=== PATIENT | female | born 1990 | race Caucasian/White ===

== ENCOUNTER 2017-06-27 15:06 | Emergency (ER) | payer MEDICAID, OTHER, SELFPAY ==
[~2017-06-27] VITALS: Ht 170.2 cm; Wt 118.1 kg
[2017-06-27 15:06] VITALS: BP 152/73
[~2017-06-27 15:06] MED LIST: ACET50TA PO; PRENTAB66 PO
[2017-06-27] MEDS ORDERED: MULTCAP11 PO (15:19)
[2017-06-27] MEDS ORDERED: IBUPROFEN 800 MG TAB PO ONE (15:30)
[2017-06-27] MEDS ORDERED: IBUP80TA PO (16:07)
--- NOTE | 2017-06-28 07:22 | REP ---
Right shoulder three views : There is no fracture or dislocation. Mineralization and joint spaces are normal. There are no calcifications or foreign bodies. Impression: Negative right shoulder . Signed by Glenroy Harry MD 06/28/2017 07:13 A
== END 2017-06-27 16:24 | disposition home or self-care (01) ==
LOC: M ED 15:06
DX: S46.011A Strain of muscle(s) and tendon(s) of the rotator cuff of right shoulder, initial encounter (principal); X58.XXXA Exposure to other specified factors, initial encounter; Y92.9 Unspecified place or not applicable; Y93.9 Activity, unspecified; Y99.9 Unspecified external cause status; Z72.0 Tobacco use

== ENCOUNTER 2017-07-16 08:55 | Emergency (ER) | payer SELFPAY ==
[~2017-07-16] VITALS: Ht 170.2 cm; Wt 122.2 kg
[~2017-07-16 08:55] MED LIST changes: +IBUP80TA PO; +MULTCAP11 PO
[2017-07-16 08:56] VITALS: BP 147/81
[2017-07-16] MEDS ORDERED: IBUP80TA PO (09:12)
[2017-07-16] MEDS ORDERED: NORCO, ANEXSIA 5/325MG TABLET (HYDROcodone/ACETAMINOPHEN) PO ONE (09:15)
== END 2017-07-16 09:24 | disposition home or self-care (01) ==
LOC: M ED 08:55
DX: S46.911A Strain of unspecified muscle, fascia and tendon at shoulder and upper arm level, right arm, initial encounter (principal); X58.XXXA Exposure to other specified factors, initial encounter; Y92.019 Unspecified place in single-family (private) house as the place of occurrence of the external cause; Y93.89 Activity, other specified; Y99.8 Other external cause status; F17.210 Nicotine dependence, cigarettes, uncomplicated

== ENCOUNTER → 2017-09-02 | Outpatient (REF) | payer OTHER, MEDICAID ==
[2017-09-02 13:02] LABS: ALBUMIN/GLOBULIN RATIO 1.38 (1.00-1.93); ALKALINE PHOSPHATASE 54 U/L (45-117); ALT/SGPT 27 U/L (12-78); ANION GAP 8 MEQ/L (8-16); AST/SGOT 11 U/L (15-37); BILIRUBIN,TOTAL 0.4 MG/DL (0.2-1.0); BLOOD UREA NITROGEN 14 MG/DL (7-18); CALCIUM LEVEL 9.3 MG/DL (8.5-10.1); CARBON DIOXIDE LEVEL 25 MEQ/L (21-32); CHLORIDE LEVEL 105 MEQ/L (98-107); CHOLESTEROL LEVEL 152 MG/DL (<200); CREATININE FOR GFR 0.83 MG/DL (0.55-1.02); FREE T4 1.24 NG/DL (0.76-1.46); GLOMERULAR FILTRATION RATE > 60.0 (>60); GLUCOSE, FASTING 83 MG/DL (70-105); POTASSIUM SERUM 4.8 MEQ/L (3.5-5.1); SODIUM LEVEL 138 MEQ/L (136-145); TOTAL PROTEIN 6.9 GM/DL (6.4-8.2); TRIGLYCERIDES LEVEL 45 MG/DL (<150)
== END ==
LOC: M SFHCPLAZ 09:43
PROVIDERS: ATTEND Family Medicine
DX: E66.01 Morbid (severe) obesity due to excess calories (principal)

== ENCOUNTER → 2017-11-26 | Outpatient (CLI) | payer SELFPAY | LOC: M SLEEP HO 08:14 | DX: G47.30 Sleep apnea, unspecified (principal) ==

== ENCOUNTER 2018-02-10 21:40 | Emergency (ER) | payer OTHER, SELFPAY ==
[2018-02-10] MEDS: ONDANSETRON 4 MG ORAL DISINTEGRATING TAB (S0181) PO (23:59)
== END 2018-02-11 00:13 | disposition home or self-care (01) ==
LOC: M ED 21:40
DX: A08.4 Viral intestinal infection, unspecified (principal); F17.210 Nicotine dependence, cigarettes, uncomplicated; Z20.828 Contact with and (suspected) exposure to other viral communicable diseases
CPT/HCPCS: 99283

== ENCOUNTER 2018-08-24 16:19 | Emergency (ER) | payer OTHER, SELFPAY | END 2018-08-24 17:28 | disposition home or self-care (01) | LOC: M ED 16:19 | DX: K04.7 Periapical abscess without sinus (principal); H92.02 Otalgia, left ear; F17.290 Nicotine dependence, other tobacco product, uncomplicated; Z79.899 Other long term (current) drug therapy | CPT/HCPCS: 99282 ==

== ENCOUNTER → 2019-10-18 | Outpatient (REF) | payer OTHER ==
[~2019-10-18] MED LIST changes: -ACET50TA PO; +HYDR-3715 PO; +IBUP-1022 PO; +MAPA500T17 PO; +PENI500T PO; +ZOFR4TAB14 PO
== END ==
LOC: M SFHCPLAZ 15:32
PROVIDERS: ATTEND Physician Assistant
DX: Z68.41 Body mass index [BMI] 40.0-44.9, adult (principal); Z00.00 Encounter for general adult medical examination without abnormal findings

== ENCOUNTER → 2019-10-19 | Outpatient (CLI) | payer OTHER ==
[2019-10-19 14:12] LABS: HEMOGLOBIN A1c 5.5 %
[2019-10-19 14:22] LABS: ALT/SGPT 36 U/L (12-78); BILIRUBIN,TOTAL 0.4 MG/DL (0.2-1.0); BLOOD UREA NITROGEN 13 MG/DL (7-18); CALCIUM LEVEL 8.9 MG/DL (8.5-10.1); CARBON DIOXIDE LEVEL 28 MEQ/L (21-32); CHLORIDE LEVEL 108 MEQ/L (98-107); CHOLESTEROL LEVEL 197 MG/DL (<200); CHOLESTEROL RISK RATIO 3.396 (<5); CREATININE FOR GFR 0.92 MG/DL (0.55-1.30); FREE T4 0.99 NG/DL (0.76-1.46); GLOMERULAR FILTRATION RATE > 60.0 (>60); GLUCOSE, FASTING 88 MG/DL (70-100); HDL CHOLESTEROL 58 MG/DL (>40); LDL CHOLESTEROL 123 MG/DL (<100); NON-HDL-C 139 MG/DL; POTASSIUM SERUM 4.5 MEQ/L (3.5-5.1); SODIUM LEVEL 140 MEQ/L (136-145); TOTAL PROTEIN 7.4 GM/DL (6.4-8.2); TRIGLYCERIDES LEVEL 82 MG/DL (<150)
== END ==
LOC: M PLALAB 11:11
PROVIDERS: ATTEND Physician Assistant
DX: Z68.41 Body mass index [BMI] 40.0-44.9, adult (principal)

== ENCOUNTER → 2020-08-08 | Outpatient (REF) | LOC: M EMPSKH 13:00 | PROVIDERS: ATTEND Nurse Practitioner Adult Health | DX: Z00.00 Encounter for general adult medical examination without abnormal findings (principal) ==

== ENCOUNTER → 2020-10-08 | Outpatient (CLI) | payer SELFPAY | LOC: M LABSMTC 13:55 | PROVIDERS: ATTEND Pediatrics | DX: Z20.828 Contact with and (suspected) exposure to other viral communicable diseases (principal) ==

== ENCOUNTER → 2020-11-02 | Outpatient (CLI) | payer OTHER ==
--- NOTE | 2020-11-12 08:53 | REP ---
INDICATION: ANATOMY COMPARISON: None. TECHNIQUE: Transabdominal obstetrical ultrasound with color Doppler evaluation. FINDINGS: NOTE: Examination was made available for interpretation on 11/12/2020. Examination demonstrates a single live intrauterine in breech presentation. motion is identified by technologist. Placenta is noted anterior and grade 1 without evidence for placenta previa or abruption. Amniotic fluid volume is normal. Cervix measures 3.6 cm in length and appears closed. Gestational age by current measurements 20 weeks 6 days with SHARON 03/16/2021. FHR equals 155 beats per minute. BPD: 4.9 cm 20 weeks 6 days HC: 18.0 cm 20 weeks 3 days AC: 16.3 cm 21 weeks 2 days FL: 3.1 cm 19 weeks 5 days HL: 3.5 cm 21 weeks 6 days HC/AC: 1.11 Estimated weight 364 grams (21stpercentile). Anatomical assessment demonstrates normal structures including cranium, cerebellum/posterior fossa, four-chamber heart/ventricular outflow tracts, diaphragm, stomach, bladder, spine, and extremities. Limited evaluation of the cerebral ventricles/choroid plexus, nose/lips, kidneys, and umbilical cord noted due to positioning and body habitus. IMPRESSION: 1. Single live intrauterine in breech presentation demonstrating appropriate estimated weight. 2. Anatomical limitations as noted above may warrant re-evaluation and follow-up. <Electronically signed by Raulito Mcclure > 11/12/20 [id number]
== END ==
LOC: M WHC 09:28
PROVIDERS: ATTEND Advanced Practice Midwife
DX: Z34.82 Encounter for supervision of other normal pregnancy, second trimester (principal)

== ENCOUNTER → 2020-11-28 | Outpatient (CLI) | payer OTHER ==
--- NOTE | 2020-11-28 08:03 | REP ---
INDICATION: F/U ANATOMY COMPARISON: 11/02/2020 TECHNIQUE: Transabdominal obstetrical ultrasound with color Doppler evaluation. FINDINGS: Examination demonstrates a single live intrauterine in transverse presentation. motion is identified by technologist. Placenta is noted anterior and grade 0 without evidence for placenta previa or abruption. Amniotic fluid volume is normal. Cervix measures 3.7 cm in length and appears closed.. Gestational age by LMP 23 weeks 3 days with SHARON 03/24/2021. Gestational age by current measurements 23 weeks 4 days with SHARON 03/23/2021. FHR equals 146 beats per minute. Estimated weight 594 grams (44percentile). Anatomical assessment demonstrates normal structures including cerebral ventricles, choroid plexus, facial features (nose/lips), and kidneys.. Normal three-vessel cord noted. IMPRESSION: Single live intrauterine in transverse lie demonstrating appropriate estimated weight and growth. In conjunction with prior examination anatomical assessment is complete and normal. <Electronically signed by Raulito Mcclure > 11/28/20 [id number]
== END ==
LOC: M WHC 06:37
PROVIDERS: ATTEND Advanced Practice Midwife
DX: Z34.82 Encounter for supervision of other normal pregnancy, second trimester (principal); Z3A.23 23 weeks gestation of pregnancy

== ENCOUNTER → 2021-01-02 | Outpatient (CLI) | payer OTHER ==
[2021-01-02 13:53] LABS: HEMATOCRIT 37.9 % (36.0-47.0); HEMOGLOBIN 12.6 g/dl (12.0-15.5); MEAN CORPUSCULAR HEMOGLOBIN 29.7 pg (27.0-33.0); MEAN CORPUSCULAR HGB CONC 33.2 g/dl (32.0-36.5); MEAN CORPUSCULAR VOLUME 89.4 fl (80.0-96.0); PLATELET COUNT, AUTOMATED 238 10^3/uL (150-450); RED BLOOD COUNT 4.24 10^6/uL (4.00-5.40); WHITE BLOOD COUNT 12.3 10^3/uL (4.0-10.0)
== END ==
LOC: M LAB 12:13
PROVIDERS: ATTEND Advanced Practice Midwife
DX: Z34.82 Encounter for supervision of other normal pregnancy, second trimester (principal); Z3A.00 Weeks of gestation of pregnancy not specified

== ENCOUNTER → 2021-02-19 | Outpatient (REF) | payer OTHER | LOC: M LAB REF 12:13 | PROVIDERS: ATTEND Obstetrics & Gynecology | DX: Z36.89 Encounter for other specified antenatal screening (principal); Z34.83 Encounter for supervision of other normal pregnancy, third trimester ==

== ENCOUNTER 2021-04-02 11:06 | Inpatient (IN) | payer OTHER ==
[~2021-04-02] VITALS: Ht 172.7 cm; Wt 152.7 kg
[2021-04-02] VITALS (14 sets, daily range): BP systolic 95–154; BP diastolic 45–94
[2021-04-02] MEDS ORDERED: LACTATED RINGER'S 1000 ML IV STA (11:15)
[2021-04-02] MEDS: LR 1,000 ML IV SCH (11:15)
[2021-04-02] MEDS ORDERED: TUMS750C22 PO (11:31)
[2021-04-02] MEDS ORDERED: PRENTAB9 PO (11:31)
[2021-04-02 11:49] LABS: HEMOGLOBIN 13.5 g/dl (12.0-15.5); MEAN CORPUSCULAR HGB CONC 32.9 g/dl (32.0-36.5); PLATELET COUNT, AUTOMATED 233 10^3/uL (150-450); RED BLOOD COUNT 4.66 10^6/uL (4.00-5.40); WHITE BLOOD COUNT 8.3 10^3/uL (4.0-10.0)
[2021-04-02] MEDS ORDERED: SLF 3 ML SYR IV PRN (12:20)
[2021-04-02] MEDS: miSOPROStol 25MCG 1/4 TABLET PO SCH ×3 (12:23→20:43)
[2021-04-02] MEDS: SLF 3 ML SYR IV SCH ×2 (12:44→22:00)
--- NOTE | 2021-04-02 18:50 | HPE ---
HISTORY AND PHYSICAL DATE OF ADMISSION: 04/02/2021 HISTORY OF PRESENT ILLNESS: Catherine is a 30-year-old female, 2, para 1-0-0-1, with an estimated date of confinement (EDC) of 04/03/2021, estimated gestational age (EGA) 41-2/7 weeks gestation, is being admitted for an induction. Upon admission, no bleeding. No leakage of fluid. Good movement. Her record is reviewed, which was essentially unremarkable. LABS: Blood type is A negative. Rubella immune. Hepatitis negative. Human immunodeficiency virus (HIV) negative. Gonorrhea and chlamydia negative. One-hour sugar testing was within normal limits. Her group B Streptococcus (GBS) is negative. She did receive RhoGAM at 28 weeks gestation. PAST MEDICAL HISTORY: Significant for eczema. PAST SURGICAL HISTORY: Denies. SOCIAL HISTORY: She denies any alcohol, drug or cigarette smoking. She is legally . FAMILY HISTORY: Significant for diabetes and cancer. REVIEW OF SYSTEMS: Unremarkable. MEDICATIONS: vitamins. ALLERGIES: No known drug allergies. PHYSICAL EXAMINATION: Obese female in no acute distress. ABDOMEN: Soft, nontender, nondistended. EXTREMITIES: No clubbing, cyanosis or edema. VAGINAL EXAM: Closed, thick and posterior. Fetus with a floating vertex. The vertex was confirmed by bedside ultrasound. TRACING: Category 1 tracing. ASSESSMENT: Intrauterine at 41-2/7 weeks gestation with a floating vertex being admitted for induction. PLAN: Admit patient to labor and delivery. Induction process discussed in great detail. The risk and benefit of the induction process discussed, as well as the potential risk for section. Pain management also discussed. Patient opted for an epidural. We will continue to monitor. Anticipate delivery. Cytotec induction will be initiated.
[2021-04-02 19:39] LABS: ALT/SGPT 15 U/L (12-78); BILIRUBIN,TOTAL 0.3 MG/DL (0.2-1.0); CREATININE FOR GFR 0.78 MG/DL (0.55-1.30); GLOMERULAR FILTRATION RATE > 60.0 (>60); LDH LACTATE DEHYDROGENASE 165 U/L (84-246); URIC ACID 7.7 MG/DL (2.6-6.0)
[2021-04-03] VITALS (47 sets, daily range): BP systolic 112–176; BP diastolic 60–109
[2021-04-03] MEDS: miSOPROStol 25MCG 1/4 TABLET PO SCH (00:39)
[2021-04-03] MEDS: SLF 3 ML SYR IV SCH (05:07)
[2021-04-03] MEDS ORDERED: OXYTOCIN 30 UNITS IN 0.9% NaCl 500ML IV BAG (J2590) As Ordered ONE (09:45)
[2021-04-03] MEDS: LR 1,000 ML IV SCH (09:57)
[2021-04-03] MEDS ORDERED: OXYTOCIN DRIP 30 UNITS in IV 1 EA IV SCH ×2 (10:00→18:30)
[2021-04-03] MEDS ORDERED: LR 1,000 ML IV SCH (10:00)
[2021-04-03] MEDS ORDERED: FENTANYL 2MCG/ML ROPIVACAINE 0.2% IN 0.9% NACL 100ML IVBAG As Ordered ONE (14:37)
[2021-04-03] MEDS ORDERED: diphenhydrAMINE 50MG/ML VIAL (J1200) IV PRN (14:45)
[2021-04-03] MEDS ORDERED: NALOXONE INJ 0.4MG/1ML VIAL (J2310 PER 1MG) IV PRN (14:45)
[2021-04-03] MEDS ORDERED: ePHEDrine SULFATE 25 MG/5 ML(5MG/ML) SYRINGE IV PRN (14:45)
[2021-04-03] MEDS ORDERED: REFRIGERATOR IV KEYS XX PRN (14:45)
[2021-04-03] MEDS ORDERED: EPIDURAL COMMENT XX SCH (14:45)
[2021-04-03] MEDS ORDERED: ONDANSETRON 4MG/2ML VIAL IV PRN (14:45)
[2021-04-03] MEDS ORDERED: LACTATED RINGER'S 1000 ML IV PRN (14:45)
[2021-04-03] MEDS ORDERED: EPIDURAL/PCA KEYS XX PRN (14:45)
[2021-04-03] MEDS ORDERED: FENTANYL/ROPIVACAINE/NACL BAG 100 ML EPIDURAL SCH (14:45)
[2021-04-03 17:43] LABS: CORD GAS ABE A -10.7; CORD GAS ABE V -6.1; CORD GAS HCO3 A 23.5 MEQ/L; CORD GAS HCO3 V 22.2 MEQ/L; CORD GAS O2 SAT A < 15.0 %; CORD GAS O2 SAT V 52.6 %; CORD GAS PCO2 A 97.4 mmHg; CORD GAS PCO2 V 53.7 mmHg; CORD GAS PH V 7.234 UNITS; CORD GAS PO2 A 12.4 mmHg; CORD GAS PO2 V 28.5 mmHg; CORD GAS SBC V 18.4 MEQ/L; CORD GAS TCO2 A 26.5 MEQ/L; CORD GAS TCO2 V 23.8 MEQ/L
[2021-04-03] MEDS ORDERED: LABETALOL 100MG/20ML VIAL IV STA (18:04)
[2021-04-03] MEDS ORDERED: IBUPROFEN 600MG TAB PO PRN (18:30)
[2021-04-03] MEDS ORDERED: METHYLERGONOVINE MALEATE 0.2 MG TAB PO PRN (18:30)
[2021-04-03] MEDS ORDERED: ACETAMINOPHEN TAB 650MG DOSE (2X325MG) PO PRN (18:30)
[2021-04-03] MEDS ORDERED: ACETAMINOPHEN 500 MG TAB PO PRN (18:30)
[2021-04-03] MEDS ORDERED: MEASLES,MUMPS,RUBELLA VACCINE INJ (MMR-II) (90707) SC SCH (18:30)
[2021-04-03] MEDS ORDERED: RHOGAM 300 MCG (1500 IU) INJ (J2790) IM SCH (18:30)
[2021-04-03] MEDS ORDERED: DOCUSATE SODIUM 100MG CAPSULE PO PRN (18:30)
[2021-04-03] MEDS ORDERED: DIBUCAINE 1% OINTMENT 30GM TOP PRN (18:30)
[2021-04-03] MEDS: IBUPROFEN 800 MG TAB PO PRN (19:46)
[2021-04-03 20:17] LABS: ALT/SGPT 12 U/L (12-78); BILIRUBIN,TOTAL 0.3 MG/DL (0.2-1.0); CREATININE FOR GFR 0.67 MG/DL (0.55-1.30); GLOMERULAR FILTRATION RATE > 60.0 (>60); LDH LACTATE DEHYDROGENASE 180 U/L (84-246); URIC ACID 7.4 MG/DL (2.6-6.0)
[2021-04-04 06:12] VITALS: BP 134/68
[2021-04-04] MEDS: PRENATAL VITAMINS CHEWABLE TABLET PO SCH (07:52)
[2021-04-04 18:00] VITALS: BP 137/73
[2021-04-05] MEDS: IBUPROFEN 800 MG TAB PO PRN (05:33)
[2021-04-05 05:38] VITALS: BP 121/58
[2021-04-05] MEDS: PRENATAL VITAMINS CHEWABLE TABLET PO SCH (09:31)
== END 2021-04-05 11:15 | disposition home or self-care (01) | DRG 560 ==
LOC: M LDI 11:06 → M OBS 04-03 21:38
PROVIDERS: ADMIT Obstetrics & Gynecology; ATTEND Obstetrics & Gynecology
PROC: 3E0P7GC Introduction of Other Therapeutic Substance into Female Reproductive, Via Natural or Artificial Opening (ICD-10-PCS; 2021-04-02)
PROC: 10907ZC Drainage of Amniotic Fluid, Therapeutic from Products of Conception, Via Natural or Artificial Opening (ICD-10-PCS; 2021-04-02)
PROC: 10E0XZZ Delivery of Products of Conception, External Approach (ICD-10-PCS; principal; 2021-04-03)
DX: O48.0 Post-term pregnancy (principal); E66.9 Obesity, unspecified; Z3A.41 41 weeks gestation of pregnancy; O99.214 Obesity complicating childbirth; Z37.0 Single live birth; O76 Abnormality in fetal heart rate and rhythm complicating labor and delivery; O64.8XX0 Obstructed labor due to other malposition and malpresentation, not applicable or unspecified

== ENCOUNTER → 2022-02-12 | Outpatient (REF) | payer OTHER, MEDICAID ==
[~2022-02-12] MED LIST changes: +PRENTAB9 PO; +TUMS750C22 PO
[2022-02-12 16:34] LABS: HEMATOCRIT 40.9 % (36.0-47.0); HEMOGLOBIN 13.6 g/dl (12.0-15.5); MEAN CORPUSCULAR HEMOGLOBIN 29.4 pg (27.0-33.0); MEAN CORPUSCULAR HGB CONC 33.3 g/dl (32.0-36.5); MEAN CORPUSCULAR VOLUME 88.5 fl (80.0-96.0); PLATELET COUNT, AUTOMATED 191 10^3/uL (150-450); RED BLOOD COUNT 4.62 10^6/uL (4.00-5.40); WHITE BLOOD COUNT 13.7 10^3/uL (4.0-10.0)
[2022-02-12 19:09] LABS: HEPATITIS B SURFACE ANTIGEN NEGATIVE (NEGATIVE); HEPATITIS C VIRUS ABY INDEX 0.2 INDEX (<0.8); HIV 1&2 SCREEN CENTAUR NEGATIVE (NEGATIVE)
[2022-02-12 19:10] LABS: HCG, SERUM QUANTITATIVE 12244 MIU/ML
== END ==
LOC: M LAB REF 16:16
PROVIDERS: ATTEND Obstetrics & Gynecology
DX: Z32.01 Encounter for pregnancy test, result positive (principal)

== ENCOUNTER → 2022-05-01 | Outpatient (CLI) | payer OTHER, MEDICAID ==
[2022-05-01 10:51] LABS: HEMATOCRIT 37.8 % (36.0-47.0); HEMOGLOBIN 12.5 g/dl (12.0-15.5); MEAN CORPUSCULAR HEMOGLOBIN 29.8 pg (27.0-33.0); MEAN CORPUSCULAR HGB CONC 33.1 g/dl (32.0-36.5); PLATELET COUNT, AUTOMATED 238 10^3/uL (150-450); WHITE BLOOD COUNT 12.7 10^3/uL (4.0-10.0)
== END ==
LOC: M LAB 08:31
PROVIDERS: ATTEND Obstetrics & Gynecology
DX: Z34.82 Encounter for supervision of other normal pregnancy, second trimester (principal)

== ENCOUNTER → 2022-05-06 | Outpatient (CLI) | payer OTHER, MEDICAID | LOC: M LAB 08:47 | PROVIDERS: ATTEND Obstetrics & Gynecology | DX: Z34.82 Encounter for supervision of other normal pregnancy, second trimester (principal) ==

== ENCOUNTER → 2022-06-19 | Outpatient (REF) | payer OTHER, MEDICAID | LOC: M LAB REF 11:38 | PROVIDERS: ATTEND Obstetrics & Gynecology | DX: Z34.83 Encounter for supervision of other normal pregnancy, third trimester (principal) ==

== ENCOUNTER → 2022-07-03 | Outpatient (REF) | payer OTHER, MEDICAID | LOC: M LAB REF 12:15 | PROVIDERS: ATTEND Obstetrics & Gynecology | DX: Z34.83 Encounter for supervision of other normal pregnancy, third trimester (principal) ==

== ENCOUNTER 2022-07-13 16:59 | Outpatient (CLI) | payer OTHER, MEDICAID ==
[~2022-07-13] VITALS: Ht 170.2 cm; Wt 131.0 kg
[2022-07-13] MEDS ORDERED: HOME MED LIST COMPLETE! XX SCH (17:20)
[2022-07-13 17:23] VITALS: BP 143/61
[2022-07-13 18:39] LABS: CALCIUM OXALATE CRYSTALS,URINE SMALL AMOUNT /hpf; RBC, URINE NONE SEEN /hpf (0-3); SQUAMOUS EPITHELIAL CELL URINE MOD AMOUNT /hpf (SMALL AMT)
[2022-07-13 18:40] LABS: AMORPHOUS SEDIMENT, URINE SMALL AMOUNT (NEGATIVE); BACTERIA, URINE SMALL AMOUNT; HYALINE CAST, URINE NONE SEEN /lpf (0-1); MUCUS, URINE LARGE AMOUNT (NEGATIVE)
== END 2022-07-13 18:55 | disposition home or self-care (01) ==
LOC: M LDO 16:59
PROVIDERS: ATTEND Obstetrics & Gynecology
DX: O26.893 Other specified pregnancy related conditions, third trimester (principal); R10.2 Pelvic and perineal pain; Z3A.37 37 weeks gestation of pregnancy; N85.8 Other specified noninflammatory disorders of uterus; O34.593 Maternal care for other abnormalities of gravid uterus, third trimester

== ENCOUNTER 2022-07-31 16:56 | Inpatient (IN) | payer OTHER ==
[2022-07-31] VITALS (7 sets, daily range): BP systolic 114–155; BP diastolic 57–95
[~2022-07-31] VITALS: Ht 170.2 cm; Wt 130.0 kg
[2022-07-31] MEDS ORDERED: PENICILLIN G POTASSIUM IV 5 MU in D5W MINI-BAG PLUS 100 ML IV STA (18:01)
[2022-07-31 18:54] LABS: HEMATOCRIT 37.8 % (36.0-47.0); MEAN CORPUSCULAR HEMOGLOBIN 30.4 pg (27.0-33.0); MEAN CORPUSCULAR HGB CONC 34.4 g/dl (32.0-36.5); MEAN CORPUSCULAR VOLUME 88.5 fl (80.0-96.0); PLATELET COUNT, AUTOMATED 219 10^3/uL (150-450); RED BLOOD COUNT 4.27 10^6/uL (4.00-5.40); WHITE BLOOD COUNT 13.6 10^3/uL (4.0-10.0)
[2022-07-31] MEDS ORDERED: HOME MED LIST COMPLETE! XX SCH (19:05)
[2022-07-31 19:26] LABS: RSV AMPLIFICATION NEGATIVE (NEGATIVE)
[2022-07-31] MEDS ORDERED: LR 1,000 ML IV SCH (19:45)
[2022-07-31] MEDS ORDERED: OXYTOCIN DRIP 30 UNITS in IV 1 EA IV SCH (19:45)
[2022-07-31] MEDS: PENICILLIN G POTASSIUM IV 2.5 MU in IV 1 EA IV SCH (23:04)
[2022-07-31] MEDS ORDERED: FENTANYL 2MCG/ML ROPIVACAINE 0.2% IN 0.9% NACL 100ML IVBAG As Ordered ONE (23:52)
[2022-08-01] VITALS (24 sets, daily range): BP systolic 95–132; BP diastolic 52–83
[2022-08-01] MEDS ORDERED: CALCIUM CARBONATE 500 MG CHEW U/D PO ONE (00:10)
[2022-08-01] MEDS ORDERED: EPIDURAL/PCA KEYS XX PRN (00:30)
[2022-08-01] MEDS ORDERED: FENTANYL/ROPIVACAINE/NACL BAG 100 ML EPIDURAL SCH (00:30)
[2022-08-01] MEDS ORDERED: LR 500 ML IV PRN (00:30)
[2022-08-01] MEDS ORDERED: NALOXONE INJ 0.4MG/1ML VIAL (J2310 PER 1MG) IV PRN (00:30)
[2022-08-01] MEDS ORDERED: ePHEDrine SULFATE 25 MG/5 ML(5MG/ML) SYRINGE IVP PRN (00:30)
[2022-08-01] MEDS ORDERED: diphenhydrAMINE 50MG/ML VIAL (J1200) IV PRN (00:30)
[2022-08-01] MEDS ORDERED: ONDANSETRON 4MG 2ML VIAL IV PRN (00:30)
[2022-08-01] MEDS: PENICILLIN G POTASSIUM IV 2.5 MU in IV 1 EA IV SCH (03:30)
[2022-08-01] MEDS ORDERED: IBUPROFEN 600MG TAB PO PRN (04:55)
[2022-08-01] MEDS ORDERED: ACETAMINOPHEN TAB 650MG DOSE (2X325MG) PO PRN (04:55)
[2022-08-01] MEDS ORDERED: DOCUSATE SODIUM 100MG CAPSULE PO PRN (04:55)
[2022-08-01] MEDS ORDERED: METHYLERGONOVINE MALEATE 0.2 MG TAB PO PRN (04:55)
[2022-08-01] MEDS ORDERED: OXYTOCIN DRIP 30 UNITS in IV 1 EA IV ONE (04:55)
[2022-08-01] MEDS ORDERED: ACETAMINOPHEN 500 MG TAB PO PRN (04:55)
[2022-08-01] MEDS ORDERED: IBUPROFEN 800 MG TAB PO PRN (04:55)
[2022-08-01] MEDS ORDERED: DIBUCAINE 1% OINTMENT 30GM TOP PRN (04:55)
[2022-08-01] MEDS ORDERED: RHOGAM 300 MCG (1500 IU) INJ (J2790) IM SCH (04:55)
[2022-08-01] MEDS: PRENATAL VITAMINS CHEWABLE TABLET PO SCH (07:45)
[2022-08-02 06:10] VITALS: BP 124/60
[2022-08-02] MEDS: PRENATAL VITAMINS CHEWABLE TABLET PO SCH (08:18)
[2022-08-02] MEDS ORDERED: MEASLES,MUMPS,RUBELLA VACCINE INJ (MMR-II) (90707) SC.IMMUN ONE (12:00)
[2022-08-03] MEDS ORDERED: MEASLES,MUMPS,RUBELLA VACCINE INJ (MMR-II) (90707) SC.IMMUN ONE (09:00)
== END 2022-08-02 16:40 | disposition home or self-care (01) | DRG 560 ==
LOC: M LDO 16:56 → M LDI 17:44 → M OBS 08-01 06:20
PROVIDERS: ADMIT Specialist; ATTEND Specialist
PROC: 10E0XZZ Delivery of Products of Conception, External Approach (ICD-10-PCS; principal; 2022-08-01)
PROC: 0HQ9XZZ Repair Perineum Skin, External Approach (ICD-10-PCS; 2022-08-01)
DX: O48.0 Post-term pregnancy (principal); O99.824 Streptococcus B carrier state complicating childbirth; Z3A.40 40 weeks gestation of pregnancy; O70.0 First degree perineal laceration during delivery; Z37.0 Single live birth

== ENCOUNTER 2023-03-13 11:25 | Emergency (ER) | payer OTHER ==
[~2023-03-13] VITALS: Ht 170.2 cm; Wt 119.3 kg
[2023-03-13 11:25] VITALS: BP 131/74
== END 2023-03-13 14:14 | disposition home or self-care (01) ==
LOC: M ED 11:25
DX: S20.212A Contusion of left front wall of thorax, initial encounter (principal); V43.52XA Car driver injured in collision with other type car in traffic accident, initial encounter; Y92.410 Unspecified street and highway as the place of occurrence of the external cause; G47.33 Obstructive sleep apnea (adult) (pediatric); J30.1 Allergic rhinitis due to pollen

== ENCOUNTER 2024-03-11 12:19 | Day surgery (SDC) | payer OTHER ==
[~2024-03-11] VITALS: Ht 170.2 cm; Wt 122.0 kg
[2024-03-11 13:32] LABS: BASO # 0.1 10^3/uL (0.0-0.2); BASO % 0.5 % (0.0-1.0); EOS # 0.4 10^3/uL (0.0-0.5); EOS % 2.1 % (0.0-3.0); HEMATOCRIT 47.5 % (36.0-47.0); HEMOGLOBIN 16.3 g/dl (12.0-15.5); LYMPH # 1.8 10^3/uL (1.5-5.0); LYMPH % 8.9 % (24.0-44.0); MEAN CORPUSCULAR HEMOGLOBIN 30.6 pg (27.0-33.0); MEAN CORPUSCULAR HGB CONC 34.3 g/dl (32.0-36.5); MEAN CORPUSCULAR VOLUME 89.1 fl (80.0-96.0); MONO % 4.7 % (2.0-8.0); NEUTROPHILS # 17.1 10^3/uL (1.5-8.5); NEUTROPHILS % 83.4 % (36.0-66.0); PLATELET COUNT, AUTOMATED 230 10^3/uL (150-450); RED BLOOD COUNT 5.33 10^6/uL (4.00-5.40); WHITE BLOOD COUNT 20.5 10^3/uL (4.0-10.0)
[2024-03-11 14:00] LABS: LIPASE 25 U/L (12-53)
[2024-03-11 14:02] LABS: ALBUMIN 4.1 G/DL (3.2-5.2); ALKALINE PHOSPHATASE 60 U/L (46-116); ALT/SGPT 19 U/L (7.0-40); AST/SGOT 13 U/L (<34); BILIRUBIN,DIRECT 0.3 MG/DL (<0.4); BILIRUBIN,TOTAL 0.7 MG/DL (0.3-1.2); BLOOD UREA NITROGEN 11 MG/DL (9-23); CALCIUM LEVEL 9.6 MG/DL (8.5-10.1); CARBON DIOXIDE LEVEL 23 MMOL/L (20-31); CHLORIDE LEVEL 106 MMOL/L (98-107); CREATININE FOR GFR 0.81 MG/DL (0.55-1.30); GLOMERULAR FILTRATION RATE > 60.0 (>60); GLUCOSE, FASTING 90 MG/DL (60-100); POTASSIUM SERUM 4.2 MMOL/L (3.5-5.1); SODIUM LEVEL 137 MMOL/L (136-145)
[2024-03-11 14:09] LABS: HCG, SERUM QUALITATIVE NEGATIVE (NEGATIVE)
[2024-03-11] MEDS ORDERED: ISOVUE-370 76% 100ML VIAL As Ordered ONE (14:14)
[2024-03-11] MEDS: PIPERACILLIN/TAZOBACTAM SOD 3.375 GM in D5W MINI-BAG PLUS 50 ML IV ONE (16:07)
[2024-03-11] MEDS ORDERED: ACETAMINOPHEN 1000MG 100ML IV BAG As Ordered ONE (17:14)
[2024-03-11] MEDS ORDERED: SUGAMMADEX SODIUM 500 MG/5 ML VIAL (BRIDION) As Ordered ONE (17:14)
[2024-03-11] MEDS ORDERED: LIDOCAINE 2% 100MG/5ML SDV (FOR ANES.) As Ordered ONE (17:14)
[2024-03-11] MEDS ORDERED: fentaNYL 250 MCG/5 ML INJECTION As Ordered ONE (17:14)
[2024-03-11] MEDS ORDERED: ONDANSETRON 4MG 2ML VIAL As Ordered ONE (17:14)
[2024-03-11] MEDS ORDERED: propofoL 200 MG/20 ML VIAL As Ordered ONE (17:14)
[2024-03-11] MEDS ORDERED: KETOROLAC 60MG 2ML VIAL As Ordered ONE (17:14)
[2024-03-11] MEDS ORDERED: MIDAZOLAM INJ 2MG/2ML VIAL As Ordered ONE (17:14)
[2024-03-11] MEDS ORDERED: ROCURONIUM BROMIDE 50MG/5ML VIAL As Ordered ONE (17:14)
[2024-03-11] MEDS: LIDOCAINE 1% SDV 30ML VIAL As Ordered ONE (17:39)
[2024-03-11] MEDS ORDERED: oxyCODONE 5MG TAB PO PRN (17:45)
[2024-03-11] MEDS ORDERED: ONDANSETRON 4MG 2ML VIAL IV PRN ×2 (17:45→17:50)
[2024-03-11] MEDS ORDERED: diphenhydrAMINE 50MG/ML VIAL IV PRN (17:45)
[2024-03-11] MEDS ORDERED: METOCLOPRAMIDE INJ 10MG/2ML VIAL IV PRN (17:45)
[2024-03-11] MEDS ORDERED: MEPERIDINE 25 MG/ML 1ML VIAL IV PRN (17:45)
[2024-03-11] MEDS: LR 1,000 ML IV SCH ×2 (17:45→18:57)
[2024-03-11] MEDS ORDERED: fentaNYL 100 MCG/2 ML INJECTION IV PRN (17:45)
[2024-03-11] MEDS ORDERED: HYDROMORPHONE HCL 0.5 MG/ 0.5 ML SYRINGE IV PRN (17:45)
[2024-03-11 18:25] VITALS: BP 112/58; TEMP 97.7; O2SAT 100
[2024-03-11 18:55] VITALS: BP 134/71; TEMP 98.1; O2SAT 98
[2024-03-11 19:25] VITALS: BP 124/58; TEMP 97.9; O2SAT 96
[2024-03-11 20:25] VITALS: BP 108/53; TEMP 98.2; O2SAT 97
[2024-03-11 21:25] VITALS: BP 105/59; TEMP 98.2; O2SAT 96
[2024-03-11] MEDS: PIPERACILLIN/TAZOBACTAM SOD 3.375 GM in D5W MINI-BAG PLUS 50 ML IV SCH (22:28)
[2024-03-11 23:00] VITALS: BP 101/57; TEMP 98.1; O2SAT 97
[2024-03-11] MEDS: KETOROLAC 30 MG/ML 1ML VIAL IV PRN (23:17)
[2024-03-12 00:01] VITALS: BP 102/56; TEMP 98.1; O2SAT 97
[2024-03-12 05:05] VITALS: BP 107/56; TEMP 98.2; O2SAT 96
[2024-03-12] MEDS: PERCOCET 5MG/325MG TAB PO PRN (06:03)
[2024-03-12 06:51] LABS: BASO % 0.3 % (0.0-1.0); EOS # 0.1 10^3/uL (0.0-0.5); EOS % 0.8 % (0.0-3.0); HEMATOCRIT 41.3 % (36.0-47.0); LYMPH # 1.7 10^3/uL (1.5-5.0); LYMPH % 14.3 % (24.0-44.0); MEAN CORPUSCULAR HEMOGLOBIN 30.5 pg (27.0-33.0); MEAN CORPUSCULAR HGB CONC 33.7 g/dl (32.0-36.5); MEAN CORPUSCULAR VOLUME 90.8 fl (80.0-96.0); MONO # 0.7 10^3/uL (0.0-0.8); MONO % 6.1 % (2.0-8.0); NEUTROPHILS # 9.4 10^3/uL (1.5-8.5); NEUTROPHILS % 78.3 % (36.0-66.0); PLATELET COUNT, AUTOMATED 201 10^3/uL (150-450); RED BLOOD COUNT 4.55 10^6/uL (4.00-5.40)
[2024-03-12 06:58] LABS: HEMOGLOBIN 13.9 g/dl (12.0-15.5)
[2024-03-12 07:14] LABS: BLOOD UREA NITROGEN 9 MG/DL (9-23); CALCIUM LEVEL 8.9 MG/DL (8.5-10.1); CARBON DIOXIDE LEVEL 27 MMOL/L (20-31); CHLORIDE LEVEL 105 MMOL/L (98-107); CREATININE FOR GFR 0.89 MG/DL (0.55-1.30); GLOMERULAR FILTRATION RATE > 60.0 (>60); GLUCOSE, FASTING 117 MG/DL (60-100); POTASSIUM SERUM 4.4 MMOL/L (3.5-5.1); SODIUM LEVEL 139 MMOL/L (136-145)
[2024-03-12 10:00] VITALS: BP 114/89; TEMP 98.2; O2SAT 98
[2024-03-12] MEDS ORDERED: PERCOCET PO (11:52)
[2024-03-12] MEDS ORDERED: AUGM500T34 PO (11:53)
[2024-03-12] MEDS ORDERED: METR-265 PO (11:54)
== END 2024-03-12 13:45 | disposition home or self-care (01) ==
LOC: M ED 12:19 → M SDC 15:20 → M MSPAV 18:23 → M SDC 03-12 13:45
PROVIDERS: ATTEND Surgery
DX: K35.30 Acute appendicitis with localized peritonitis, without perforation or gangrene (principal); D72.829 Elevated white blood cell count, unspecified; L30.9 Dermatitis, unspecified; G47.30 Sleep apnea, unspecified; N83.202 Unspecified ovarian cyst, left side; Z87.891 Personal history of nicotine dependence; J30.1 Allergic rhinitis due to pollen; J30.81 Allergic rhinitis due to animal (cat) (dog) hair and dander
CPT/HCPCS: 36415; 44970; 76705; 80048; 80076; 83690; 84703; 85025; 86140; 88304; 96365; 96366; 96375; 96376; 99284; J0131; J0665; J1100; J1885; J2250; J2405; J2543; J3010; Q9967

== ENCOUNTER → 2024-08-05 | Outpatient (CLI) | payer OTHER ==
[~2024-08-05] MED LIST changes: +AUGM500T34 PO; +METR-265 PO; +PERCOCET PO
[2024-08-05 11:42] LABS: BASO # 0.1 10^3/uL (0.0-0.2); BASO % 0.9 % (0.0-1.0); EOS # 0.4 10^3/uL (0.0-0.5); EOS % 4.6 % (0.0-3.0); HEMATOCRIT 46.7 % (36.0-47.0); HEMOGLOBIN 15.4 g/dl (12.0-15.5); LYMPH # 1.8 10^3/uL (1.5-5.0); LYMPH % 20.8 % (24.0-44.0); MEAN CORPUSCULAR HEMOGLOBIN 30.4 pg (27.0-33.0); MEAN CORPUSCULAR VOLUME 92.1 fl (80.0-96.0); MONO # 0.6 10^3/uL (0.0-0.8); MONO % 7.4 % (2.0-8.0); NEUTROPHILS # 5.7 10^3/uL (1.5-8.5); PLATELET COUNT, AUTOMATED 226 10^3/uL (150-450); RED BLOOD COUNT 5.07 10^6/uL (4.00-5.40); WHITE BLOOD COUNT 8.6 10^3/uL (4.0-10.0)
[2024-08-05 11:59] LABS: ERYTHROCYTE SEDIMENTATION RATE 11 mm/hr (0-20)
[2024-08-05 12:17] LABS: C REACTIVE PROTEIN QUANTITATIV < 0.40 MG/DL (<1.0)
[2024-08-05 12:19] LABS: ALBUMIN 3.6 G/DL (3.2-5.2); ALKALINE PHOSPHATASE 58 U/L (46-116); ALT/SGPT 19 U/L (7.0-40); AST/SGOT < 8 U/L (<34); BILIRUBIN,TOTAL 0.4 MG/DL (0.3-1.2); BLOOD UREA NITROGEN 10 MG/DL (9-23); CALCIUM LEVEL 9.1 MG/DL (8.5-10.1); CARBON DIOXIDE LEVEL 25 MMOL/L (20-31); CHLORIDE LEVEL 109 MMOL/L (98-107); CHOLESTEROL LEVEL 157 MG/DL (<200); CREATININE FOR GFR 0.94 MG/DL (0.55-1.30); GLOMERULAR FILTRATION RATE > 60.0 (>60); GLUCOSE, FASTING 85 MG/DL (60-100); LDL CHOLESTEROL 96.8 MG/DL (<100); POTASSIUM SERUM 4.4 MMOL/L (3.5-5.1); SODIUM LEVEL 139 MMOL/L (136-145); TOTAL PROTEIN 6.8 G/DL (5.7-8.2); TRIGLYCERIDES LEVEL 141 MG/DL (<150)
[2024-08-05 12:20] LABS: THYROID STIMULATING HORMONE 3.326 uIU/ML (0.55-4.78)
[2024-08-06 12:36] LABS: ANA SCREEN, IFA NEGATIVE (NEGATIVE)
== END ==
LOC: M PLALAB 08:07
PROVIDERS: ATTEND Nurse Practitioner Family
DX: R21 Rash and other nonspecific skin eruption (principal)

== ENCOUNTER → 2024-09-08 | Outpatient (REF) | payer MEDICAID, OTHER | LOC: M SFHCADAM 11:22 | PROVIDERS: ATTEND Nurse Practitioner Family | DX: L40.0 Psoriasis vulgaris (principal) ==

== ENCOUNTER → 2024-09-08 | Outpatient (CLI) | payer MEDICAID, OTHER ==
[2024-09-08 14:28] LABS: HEPATITIS B SURFACE ANTIGEN NEGATIVE (NEGATIVE)
[2024-09-08 14:40] LABS: HIV 1&2 SCREEN NEGATIVE (NEGATIVE)
[2024-09-08 14:49] LABS: HEPATITIS B CORE ANTIBODY IGM NEGATIVE (NEGATIVE); HEPATITIS C VIRUS ABY INDEX 0.03 INDEX (<0.8)
[2024-09-12 13:02] LABS: QuantiFERON-TB Gold Plus NEGATIVE (NEGATIVE)
== END ==
LOC: M LAB 12:03
PROVIDERS: ATTEND Nurse Practitioner Family
DX: L40.0 Psoriasis vulgaris (principal)

== ENCOUNTER → 2025-07-26 | Outpatient (CLI) | payer OTHER ==
[~2025-07-26] MED LIST changes: -IBUP-1022 PO; +IBUP600T42 PO
[2025-07-26 10:21] LABS: BASO # 0.1 10^3/uL (0.0-0.2); BASO % 1.0 % (0.0-1.0); EOS # 0.6 10^3/uL (0.0-0.5); EOS % 5.8 % (0.0-3.0); LYMPH # 2.2 10^3/uL (1.5-5.0); LYMPH % 22.5 % (24.0-44.0); MONO # 0.7 10^3/uL (0.0-0.8); MONO % 7.0 % (2.0-8.0); NEUTROPHILS # 6.1 10^3/uL (1.5-8.5); NEUTROPHILS % 63.5 % (36.0-66.0); PLATELET COUNT, AUTOMATED 260 10^3/uL (150-450)
[2025-07-26 10:50] LABS: ALT/SGPT 21.0 U/L (7.0-40); AST/SGOT 16.0 U/L (<34); CALCIUM LEVEL 9.4 MG/DL (8.5-10.1); CARBON DIOXIDE LEVEL 26.0 MMOL/L (20-31); CHLORIDE LEVEL 109.0 MMOL/L (98-107); CHOLESTEROL LEVEL 162.0 MG/DL (<200); CHOLESTEROL RISK RATIO 3.64 (<5); CREATININE FOR GFR 0.92 MG/DL (0.55-1.30); GLOMERULAR FILTRATION RATE 83.8 (>60); LDL CHOLESTEROL 91.8 MG/DL (<100); NON-HDL-C 117.6 MG/DL; POTASSIUM SERUM 5.0 MMOL/L (3.5-5.1); SODIUM LEVEL 142.0 MMOL/L (136-145); TRIGLYCERIDES LEVEL 129.0 MG/DL (<150)
[2025-07-26 10:51] LABS: TOTAL 25(OH) VITAMIN D 32.9 NG/ML (20.0-100.0)
[2025-07-26 10:52] LABS: FREE T4 1.47 NG/DL (0.89-1.76)
[2025-07-26 11:21] LABS: ESTIMATED AVERAGE GLUCOSE 103.0 MG/DL (60-110)
== END ==
LOC: M LAB 08:38
PROVIDERS: ATTEND Nurse Practitioner Family
DX: M79.672 Pain in left foot (principal); M79.671 Pain in right foot; M54.50 Low back pain, unspecified; E55.9 Vitamin D deficiency, unspecified; R53.83 Other fatigue; E78.2 Mixed hyperlipidemia

== ENCOUNTER → 2025-08-19 | Outpatient (RCR) | LOC: M EMPSKH 08-01 14:57 | PROVIDERS: ATTEND Family Medicine | DX: Z20.828 Contact with and (suspected) exposure to other viral communicable diseases (principal) ==